=== PATIENT | male | born 1945 | race Caucasian/White ===

== ENCOUNTER 2017-05-20 08:49 | Day surgery (SDC) | payer OTHER ==
[2017-05-20] MEDS ORDERED: NS 500 ML IV 500 ML IV ONE (09:23)
[2017-05-20] MEDS ORDERED: TETRACAINE 0.5% OPHTH 1 DOSE AFFEYE ONE ×2 (09:40→12:51)
[2017-05-20] MEDS ORDERED: VIGAMOX 0.5% OPHTH 1 DOSE AFFEYE ONE ×5 (09:41→13:07)
[2017-05-20] MEDS ORDERED: PROLENSA OPHTH 1 DOSE AFFEYE ONE (09:48)
[2017-05-20] MEDS ORDERED: ALPHAGAN-P OPHTH 1 DOSE AFFEYE ONE (09:49)
[2017-05-20] MEDS ORDERED: CYCLOGYL 1% OPHTH 1 DOSE OP ONE ×3 (09:50→09:52)
[2017-05-20] MEDS ORDERED: AK-DILATE 2.5% OPHTH 1 DOSE OP ONE ×3 (09:50→09:52)
[2017-05-20] MEDS ORDERED: MYDRIACIL OPHTH 1 DOSE AFFEYE ONE ×3 (09:50→09:52)
[2017-05-20] MEDS ORDERED: BETADINE OPHTH SOLN 5% EACHEYE ONE (12:51)
[2017-05-20] MEDS ORDERED: DUOVISC IO ONE (12:56)
[2017-05-20] MEDS ORDERED: XYLOCAINE-MPF 1% IJ ONE (12:56)
[2017-05-20] MEDS ORDERED: ADRENALINE CHL INJ IJ ONE (12:56)
[2017-05-20] MEDS ORDERED: BSS OPHTH (PLAIN) 500 ML with VANCOMYCIN HCL 500 MG VIAL 25 MG, ADRENALINE CHL INJ 1 MG IR ONE ×3 (12:56)
[2017-05-20 13:20] VITALS: BP 176/95
== END 2017-05-20 13:20 | disposition home or self-care (01) ==
LOC: SURG1 08:49
PROVIDERS: ATTEND Ophthalmology
PROC: 08DK3ZZ Extraction of Left Lens, Percutaneous Approach (ICD-10-PCS; principal; 2017-05-20 17:00)
PROC: 08RK3JZ Replacement of Left Lens with Synthetic Substitute, Percutaneous Approach (ICD-10-PCS; principal; 2017-05-20 17:00)
DX: H25.11 Age-related nuclear cataract, right eye (principal); H25.012 Cortical age-related cataract, left eye; H52.222 Regular astigmatism, left eye
CPT/HCPCS: 99100; A4217; J0170; J3370

== ENCOUNTER 2017-07-22 07:38 | Day surgery (SDC) | payer OTHER ==
[2017-07-22] MEDS ORDERED: TETRACAINE 0.5% OPHTH 1 DOSE AFFEYE ONE ×2 (08:25→10:44)
[2017-07-22] MEDS ORDERED: VIGAMOX 0.5% OPHTH 1 DOSE AFFEYE ONE ×5 (08:26→11:03)
[2017-07-22] MEDS ORDERED: PROLENSA OPHTH 1 DOSE AFFEYE ONE (08:37)
[2017-07-22] MEDS ORDERED: ALPHAGAN-P OPHTH 1 DOSE AFFEYE ONE (08:38)
[2017-07-22] MEDS ORDERED: VISINE-A OPHTH 1 DOSE AFFEYE ONE (08:39)
[2017-07-22] MEDS ORDERED: AK-DILATE 2.5% OPHTH 1 DOSE OP ONE ×5 (08:40→08:44)
[2017-07-22] MEDS ORDERED: MYDRIACIL OPHTH 1 DOSE AFFEYE ONE ×5 (08:40→08:44)
[2017-07-22] MEDS ORDERED: CYCLOGYL 1% OPHTH 1 DOSE OP ONE ×5 (08:40→08:44)
[2017-07-22] MEDS ORDERED: NS 500 ML IV 500 ML IV ONE (08:45)
[2017-07-22] MEDS ORDERED: BETADINE OPHTH SOLN 5% EACHEYE ONE (10:44)
[2017-07-22] MEDS ORDERED: DUOVISC IO ONE ×2 (10:47→10:53)
[2017-07-22] MEDS ORDERED: XYLOCAINE-MPF 1% IJ ONE ×2 (10:47→10:53)
[2017-07-22] MEDS ORDERED: ADRENALINE CHL INJ IJ ONE ×2 (10:47→10:53)
[2017-07-22] MEDS ORDERED: BSS OPHTH (PLAIN) 500 ML with VANCOMYCIN HCL 500 MG VIAL 25 MG, ADRENALINE CHL INJ 1 MG IR ONE ×6 (10:49)
[2017-07-22] MEDS ORDERED: DIPRIVAN VIAL ONE (13:40)
[2017-07-22] MEDS ORDERED: VERSED ONE (13:40)
[2017-07-22 14:55] VITALS: BP 145/78
== END 2017-07-22 11:30 | disposition home or self-care (01) ==
LOC: SURG1 07:38
PROVIDERS: ATTEND Ophthalmology
PROC: 08DJ3ZZ Extraction of Right Lens, Percutaneous Approach (ICD-10-PCS; principal; 2017-07-22 13:30)
PROC: 08RJ3JZ Replacement of Right Lens with Synthetic Substitute, Percutaneous Approach (ICD-10-PCS; principal; 2017-07-22 13:30)
DX: H25.11 Age-related nuclear cataract, right eye (principal); H25.011 Cortical age-related cataract, right eye
CPT/HCPCS: A4217; J0170; J2250; J3370; J3490